=== PATIENT | female | born 1960 | race Caucasian/White ===

== ENCOUNTER 2017-10-07 14:10 | Inpatient (IN) | payer MEDICAID ==
[~2017-10-07] VITALS: Ht 172.7 cm; Wt 63.0 kg
[2017-10-07] MEDS ORDERED: normal saline 1000ML IV soln IVB ONE (14:25)
[2017-10-07] MEDS ORDERED: ondansetron/PF 4mg/2ml inj IV ONE (14:25)
[2017-10-07 14:53] LABS: CLARITY,URINE CLOUDY (Clear); GLUCOSE, URINE 100 mg/dl (Neg); KETONES,URINE 15 mg/dl (Neg); LEUKOCYTE ESTERASE ,URINE NEGATIVE (Neg); NITRITES, URINE POSITIVE (Neg); OCCULT BLOOD,URINE LARGE (Neg); PH,URINE 5.5 (4.8-8.0); PROTEIN,URINE 30 mg/dl (Neg); URINE HCG NEGATIVE (NEG); UROBILINOGEN,URINE >=8.0 E.U/dL (0.2-1.0)
[2017-10-07 14:57] LABS: UA COLLECTION TYPE CLN CATCH MIDSTREAM
[2017-10-07 14:58] LABS: COLOR,URINE AMBER (Yellow)
[2017-10-07 15:01] LABS: BACTERIA,URINE 2+ /HPF (Neg); HYALINE CASTS 0-3 /LPF (NEGATIVE); MUCUS STRANDS MODERATE /LPF (Neg); SQUAMOUS EPITHELIAL CELL,UR MANY /LPF (FEW)
[2017-10-07 15:05] LABS: BASOPHILS % (AUTO) 0 % (0-1); EOSINOPHILS # (AUTO) 0.1 X10'3 (0-0.9); EOSINOPHILS % (AUTO) 0.7 % (0-6); HEMATOCRIT 44.9 % (35.0-45.0); HEMOGLOBIN 15.6 g/dl (12.0-16.0); LYMPHOCYTES # (AUTO) 0.7 X10'3 (1.1-4.8); LYMPHOCYTES % (AUTO) 8.7 % (21-51); MEAN CORPUSCULAR HEMOGLOBIN 31.9 PG (27.0-31.0); MEAN CORPUSCULAR HGB CONC 34.7 % (33.0-36.5); MEAN CORPUSCULAR VOLUME 91.9 FL (78-98); MEAN PLATELET VOLUME 9.1 FL (7.4-10.4); MONOCYTES # (AUTO) 0.6 X10'3 (0-0.9); MONOCYTES % (AUTO) 7.9 % (2-12); NEUTROPHILS # (AUTO) 6.5 X10'3 (1.8-7.7); NEUTROPHILS % (AUTO) 82.7 % (42-75); PLATELET COUNT 165 X10'3 (140-440); RED BLOOD COUNT 4.89 X10'6 (4.20-5.60); RED CELL DISTRIBUTION WIDTH 12.6 % (11.5-14.5); WHITE BLOOD COUNT 7.9 X10'3 (4.5-11.0)
[2017-10-07 15:14] LABS: PROTHROMBIN TIME 10.2 SECONDS (9.0-12.0)
[2017-10-07 15:20] LABS: ALANINE AMINOTRANSFERASE 310 U/L (12-78); ALBUMIN 3.7 G/DL (3.4-5.0); ALBUMIN/GLOBULIN RATIO 0.9 (1.1-1.5); ALKALINE PHOSPHATASE 168 IU/L (46-116); ANION GAP 13 (8-16); ASPARTATE AMINO TRANSFERASE 99 U/L (10-37); BILIRUBIN,TOTAL 2.7 MG/DL (0.1-1.0); BLOOD UREA NITROGEN 13 MG/DL (7-18); CHLORIDE 96 MMOL/L (99-107); CREATININE 1.08 MG/DL (0.40-0.90); GLUCOSE 143 MG/DL (70-104); SODIUM 131 MMOL/L (135-145); TOTAL CARBON DIOXIDE 22.1 MMOL/L (24-32); eGFR 52 ML/MIN
[2017-10-07 15:23] LABS: TROPONIN I < 0.04 NG/ML (0.0-0.05)
[2017-10-07 15:25] LABS: POTASSIUM 3.9 MMOL/L (3.5-5.1)
[2017-10-07] MEDS ORDERED: morphine 4 MG/ML inj SYRINge IV PRN ×2 (17:20)
[2017-10-07] MEDS: K and/or MAG REPLACEMENT MC SCH (17:20)
[2017-10-07] MEDS ORDERED: potassium Cl 40MEQ/NS 500ml 500 ML IV PRN ×2 (17:20)
[2017-10-07] MEDS ORDERED: HYDROcodone/acetaminophen 5mg/325mg tablet PO PRN (17:20)
[2017-10-07] MEDS ORDERED: magnesium 4gm in 100ml NS 100 ML IV PRN (17:20)
[2017-10-07] MEDS ORDERED: magnesium hydroxide 30ml (MOM) UD suspension PO PRN (17:20)
[2017-10-07] MEDS ORDERED: diphenhydrAMINE 25mg capsule PO PRN (17:20)
[2017-10-07] MEDS ORDERED: HYDROcodone/acetaminophen 10/325mg tab PO PRN (17:20)
[2017-10-07] MEDS ORDERED: diphenhydrAMINE 50 mg/ml inj IV PRN (17:20)
[2017-10-07] MEDS ORDERED: potassium Cl 20 mEq SR tablet PO PRN ×2 (17:20)
[2017-10-07] MEDS ORDERED: magnesium Cl slow-release 64mg tablet PO PRN (17:20)
[2017-10-07] MEDS ORDERED: acetaminophen 325mg tablet PO PRN ×2 (17:20)
[2017-10-07] MEDS ORDERED: magnesium 1gm/100ml D5W IVPB 100 ML IV PRN (17:20)
[2017-10-07] MEDS: ondansetron/PF 4mg/2ml inj IV PRN (17:58)
[2017-10-07] MEDS ORDERED: proCHLORperazine 10 MG/2 ml inj IV ONE (18:05)
[2017-10-07] MEDS ORDERED: NO HOME MEDS (19:56)
[2017-10-07 20:00] VITALS: BP 125/73
[2017-10-07] MEDS: heparin, porcine 5000 units/ml vial SQ SCH (20:00)
[2017-10-07] MEDS ORDERED: temazepam 15mg capsule PO PRN (21:00)
[2017-10-07] MEDS: normal saline 1000ml 1,000 ML IV SCH (21:26)
[2017-10-07 23:27] VITALS: BP 112/58
[2017-10-08] VITALS (17 sets, daily range): BP systolic 101–144; BP diastolic 52–80
[2017-10-08] MEDS: normal saline 1000ml 1,000 ML IV SCH ×3 (03:20→23:20)
[2017-10-08 04:48] LABS: BASOPHILS % (AUTO) 0.2 % (0-1); EOSINOPHILS # (AUTO) 0.1 X10'3 (0-0.9); EOSINOPHILS % (AUTO) 1.6 % (0-6); HEMATOCRIT 38.6 % (35.0-45.0); HEMOGLOBIN 13.2 g/dl (12.0-16.0); MEAN CORPUSCULAR HGB CONC 34.3 % (33.0-36.5); MEAN CORPUSCULAR VOLUME 93.2 FL (78-98); MEAN PLATELET VOLUME 9.5 FL (7.4-10.4); MONOCYTES # (AUTO) 0.7 X10'3 (0-0.9); MONOCYTES % (AUTO) 13.5 % (2-12); NEUTROPHILS # (AUTO) 3.6 X10'3 (1.8-7.7); NEUTROPHILS % (AUTO) 65.7 % (42-75); PLATELET COUNT 138 X10'3 (140-440); RED BLOOD COUNT 4.14 X10'6 (4.20-5.60); RED CELL DISTRIBUTION WIDTH 12.7 % (11.5-14.5); WHITE BLOOD COUNT 5.5 X10'3 (4.5-11.0)
[2017-10-08 05:04] LABS: ALANINE AMINOTRANSFERASE 239 U/L (12-78); ALBUMIN 2.8 G/DL (3.4-5.0); ALBUMIN/GLOBULIN RATIO 0.8 (1.1-1.5); ALKALINE PHOSPHATASE 129 IU/L (46-116); ANION GAP 8 (8-16); ASPARTATE AMINO TRANSFERASE 81 U/L (10-37); BILIRUBIN,TOTAL 1.8 MG/DL (0.1-1.0); BLOOD UREA NITROGEN 8 MG/DL (7-18); CALCIUM 8.7 MG/DL (8.5-10.1); CHLORIDE 103 MMOL/L (99-107); GLUCOSE 109 MG/DL (70-104); MAGNESIUM 2.2 MG/DL (1.5-2.4); PHOSPHORUS 2.6 MG/DL (2.3-4.5); POTASSIUM 3.8 MMOL/L (3.5-5.1); SODIUM 134 MMOL/L (135-145); TOTAL CARBON DIOXIDE 23.3 MMOL/L (24-32); TOTAL PROTEIN 6.4 G/DL (6.4-8.2); eGFR 74 ML/MIN
[2017-10-08] MEDS: K and/or MAG REPLACEMENT MC SCH (08:00)
[2017-10-08] MEDS: heparin, porcine 5000 units/ml vial SQ SCH ×2 (08:00→19:28)
[2017-10-08 09:48] LABS: GLUCOSE, URINE NEGATIVE (Neg); KETONES,URINE 15 mg/dl (Neg); LEUKOCYTE ESTERASE ,URINE NEGATIVE (Neg); NITRITES, URINE NEGATIVE (Neg); OCCULT BLOOD,URINE LARGE (Neg); PROTEIN,URINE TRACE mg/dl (Neg); UA COLLECTION TYPE NON-SPECIFIED; UROBILINOGEN,URINE >=8.0 E.U/dL (0.2-1.0)
[2017-10-08 09:49] LABS: CLARITY,URINE SLIGHTLY CLOUDY (Clear); COLOR,URINE AMBER (Yellow)
[2017-10-08 09:55] LABS: SQUAMOUS EPITHELIAL CELL,UR FEW /LPF (FEW)
[2017-10-08 09:56] LABS: BACTERIA,URINE FEW /HPF (Neg); WBC,URINE 0-4 /HPF (0-4)
[2017-10-08] MEDS ORDERED: meperidine/PF 100mg/ml syringe ONE (12:40)
[2017-10-08] MEDS ORDERED: MIDAZolam 5mg/5ml vial ONE (12:41)
[2017-10-08] MEDS ORDERED: fentaNYL/PF 50MCG/1 ML 2ML syringe ONE (12:41)
[2017-10-08] MEDS ORDERED: levoFLOXACIN-Levaquin 500mg/D5 100 ML IV ONE (12:42)
[2017-10-08] MEDS ORDERED: diphenhydrAMINE 50 mg/ml inj ONE ×2 (12:42→13:18)
[2017-10-08] MEDS ORDERED: LIDOcaine Viscous 15ml cup ONE (12:42)
[2017-10-08] MEDS ORDERED: glucagon, human recombinant 1mg kit ONE (12:43)
[2017-10-08] MEDS ORDERED: iohexol 300 MG/1 ML 50ml polymer ONE (12:43)
[2017-10-08] MEDS: ondansetron/PF 4mg/2ml inj IV PRN (19:19)
[2017-10-09] VITALS (21 sets, daily range): BP systolic 96–143; BP diastolic 47–76
[2017-10-09 05:15] LABS: BASOPHILS % (AUTO) 0.1 % (0-1); EOSINOPHILS # (AUTO) 0.1 X10'3 (0-0.9); EOSINOPHILS % (AUTO) 1.8 % (0-6); HEMATOCRIT 38.2 % (35.0-45.0); HEMOGLOBIN 13.2 g/dl (12.0-16.0); LYMPHOCYTES # (AUTO) 1.1 X10'3 (1.1-4.8); LYMPHOCYTES % (AUTO) 15.1 % (21-51); MEAN CORPUSCULAR HEMOGLOBIN 32.4 PG (27.0-31.0); MEAN CORPUSCULAR HGB CONC 34.7 % (33.0-36.5); MEAN CORPUSCULAR VOLUME 93.3 FL (78-98); MONOCYTES # (AUTO) 0.9 X10'3 (0-0.9); MONOCYTES % (AUTO) 12.4 % (2-12); NEUTROPHILS % (AUTO) 70.6 % (42-75); PLATELET COUNT 142 X10'3 (140-440); RED BLOOD COUNT 4.09 X10'6 (4.20-5.60); RED CELL DISTRIBUTION WIDTH 12.2 % (11.5-14.5); WHITE BLOOD COUNT 7.1 X10'3 (4.5-11.0)
[2017-10-09 05:45] LABS: ALANINE AMINOTRANSFERASE 184 U/L (12-78); ALBUMIN 2.7 G/DL (3.4-5.0); ALBUMIN/GLOBULIN RATIO 0.8 (1.1-1.5); ALKALINE PHOSPHATASE 132 IU/L (46-116); ANION GAP 12 (8-16); ASPARTATE AMINO TRANSFERASE 57 U/L (10-37); BILIRUBIN,TOTAL 0.9 MG/DL (0.1-1.0); BLOOD UREA NITROGEN 8 MG/DL (7-18); BUN/CREATININE RATIO 11.9 (6.6-38.0); CALCIUM 8.5 MG/DL (8.5-10.1); CHLORIDE 103 MMOL/L (99-107); CREATININE 0.67 MG/DL (0.40-0.90); GLUCOSE 85 MG/DL (70-104); MAGNESIUM 1.8 MG/DL (1.5-2.4); PHOSPHORUS 2.1 MG/DL (2.3-4.5); POTASSIUM 3.9 MMOL/L (3.5-5.1); SODIUM 136 MMOL/L (135-145); TOTAL PROTEIN 6.2 G/DL (6.4-8.2); eGFR > 90 ML/MIN
[2017-10-09] MEDS ORDERED: LIDOcaine 1% 30ml preserv. free vial ONE (06:38)
[2017-10-09] MEDS ORDERED: BUPIVAcaine/PF 2.5mg/ml (0.25%) 10ml vial ONE (06:39)
[2017-10-09] MEDS ORDERED: ringers solution, lacted 1,000 ML IV SCH (07:37)
[2017-10-09] MEDS ORDERED: labetalol 20mg/4ml (5mg/ml) syringe IV PRN (07:40)
[2017-10-09] MEDS ORDERED: HYDROmorphone 1 mg/ml syringe IV PRN ×2 (07:40)
[2017-10-09] MEDS ORDERED: hydrALAZINE 20mg/ml inj. IV PRN (07:40)
[2017-10-09] MEDS ORDERED: morphine 4 MG/ML inj SYRINge IV PRN ×2 (07:40)
[2017-10-09] MEDS ORDERED: ondansetron/PF 4mg/2ml inj IV PRN (07:40)
[2017-10-09] MEDS: heparin, porcine 5000 units/ml vial SQ SCH ×2 (08:00→19:23)
[2017-10-09] MEDS: K and/or MAG REPLACEMENT MC SCH (08:00)
[2017-10-09] MEDS ORDERED: midazolam 2 mg/2 ml injection ONE (08:24)
[2017-10-09] MEDS ORDERED: morphine 10mg/ml inj. ONE ×2 (08:24)
[2017-10-09] MEDS ORDERED: propofol inj 20 ML IV ONE (08:26)
[2017-10-09] MEDS ORDERED: LIDOcaine 1%/PF 5ML 10 MG/ML VIAL ONE (08:26)
[2017-10-09] MEDS ORDERED: rocuronium 10mg/ml inj IV ONE (08:26)
[2017-10-09] MEDS ORDERED: neostigmine methylsulfate 1 MG/ML 10ml vial ONE (08:26)
[2017-10-09] MEDS ORDERED: dexamethasone sod phosphate 4mg/ml inj. ONE (08:26)
[2017-10-09] MEDS ORDERED: glycopyrrolate 0.2mg/ml inj ONE (08:26)
[2017-10-09] MEDS ORDERED: ondansetron/PF 4mg/2ml inj ONE (08:26)
[2017-10-09] MEDS ORDERED: sevoflurane 250ml liquid IH ONE (08:29)
[2017-10-09 08:31] LABS: HBSAG SCREEN Negative (Negative); HEP A AB, IGM Negative (Negative); HEP B CORE AB, IGM Negative (Negative); HEPATITIS C ANTIBODY <0.1 s/co ratio (0.0-0.9)
[2017-10-09] MEDS ORDERED: ceFAZolin 1000mg inj ONE ×2 (08:46)
[2017-10-09] MEDS: normal saline 1000ml 1,000 ML IV SCH ×2 (09:20→15:50)
[2017-10-09] MEDS ORDERED: HYDROcodone/acetaminophen 5mg/325mg tablet PO PRN (09:40)
[2017-10-09] MEDS: HYDROcodone/acetaminophen 10/325mg tab PO PRN ×3 (11:34→20:30)
[2017-10-09] MEDS: mag hydrox/Alum hydrox/simeth 30ml oral suspension PO PRN ×2 (17:50→22:11)
[2017-10-10] VITALS: BP 117/56
[2017-10-10] MEDS: ondansetron/PF 4mg/2ml inj IV PRN (00:38)
[2017-10-10] MEDS: HYDROcodone/acetaminophen 10/325mg tab PO PRN ×5 (00:45→20:28)
[2017-10-10 04:00] VITALS: BP 126/72
[2017-10-10] MEDS: normal saline 1000ml 1,000 ML IV SCH ×3 (04:09→22:09)
[2017-10-10 04:43] LABS: BASOPHILS % (AUTO) 0.1 % (0-1); EOSINOPHILS % (AUTO) 0.1 % (0-6); HEMATOCRIT 35.4 % (35.0-45.0); HEMOGLOBIN 12.4 g/dl (12.0-16.0); LYMPHOCYTES % (AUTO) 10.2 % (21-51); MEAN CORPUSCULAR HEMOGLOBIN 32.8 PG (27.0-31.0); MEAN CORPUSCULAR HGB CONC 35.1 % (33.0-36.5); MEAN CORPUSCULAR VOLUME 93.5 FL (78-98); MEAN PLATELET VOLUME 9.6 FL (7.4-10.4); MONOCYTES # (AUTO) 0.6 X10'3 (0-0.9); MONOCYTES % (AUTO) 6.6 % (2-12); PLATELET COUNT 170 X10'3 (140-440); RED BLOOD COUNT 3.79 X10'6 (4.20-5.60); RED CELL DISTRIBUTION WIDTH 11.4 % (11.5-14.5); WHITE BLOOD COUNT 9.6 X10'3 (4.5-11.0)
[2017-10-10] MEDS ORDERED: oxyCODONE IR 5mg (immed. release) tablet PO PRN (04:45)
[2017-10-10] MEDS ORDERED: proMETHazine 12.5mg rectal suppository RC PRN (04:45)
[2017-10-10 04:52] LABS: ALANINE AMINOTRANSFERASE 112 U/L (12-78); ALBUMIN 2.4 G/DL (3.4-5.0); ALBUMIN/GLOBULIN RATIO 0.7 (1.1-1.5); ALKALINE PHOSPHATASE 114 IU/L (46-116); ANION GAP 4 (8-16); ASPARTATE AMINO TRANSFERASE 34 U/L (10-37); BLOOD UREA NITROGEN 12 MG/DL (7-18); BUN/CREATININE RATIO 18.5 (6.6-38.0); CALCIUM 8.5 MG/DL (8.5-10.1); CHLORIDE 102 MMOL/L (99-107); CREATININE 0.65 MG/DL (0.40-0.90); GLUCOSE 135 MG/DL (70-104); MAGNESIUM 1.9 MG/DL (1.5-2.4); POTASSIUM 3.5 MMOL/L (3.5-5.1); SODIUM 134 MMOL/L (135-145); TOTAL PROTEIN 5.7 G/DL (6.4-8.2); eGFR > 90 ML/MIN
[2017-10-10] MEDS ORDERED: proMETHazine 25mg rectal suppository RC PRN (04:54)
[2017-10-10] MEDS: heparin, porcine 5000 units/ml vial SQ SCH ×2 (07:14→20:29)
[2017-10-10] MEDS: K and/or MAG REPLACEMENT MC SCH (07:17)
[2017-10-10 07:30] VITALS: BP 121/56
[2017-10-10 10:50] VITALS: BP 113/65
[2017-10-10 19:00] VITALS: BP 116/63
[2017-10-11] VITALS: BP 103/59
[2017-10-11] MEDS: HYDROcodone/acetaminophen 10/325mg tab PO PRN ×4 (00:16→17:52)
[2017-10-11 05:35] LABS: BASOPHILS # (AUTO) 0.1 X10'3 (0-0.2); BASOPHILS % (AUTO) 0.6 % (0-1); EOSINOPHILS # (AUTO) 0.2 X10'3 (0-0.9); EOSINOPHILS % (AUTO) 1.7 % (0-6); HEMATOCRIT 34.4 % (35.0-45.0); LYMPHOCYTES # (AUTO) 1.5 X10'3 (1.1-4.8); LYMPHOCYTES % (AUTO) 13.2 % (21-51); MEAN CORPUSCULAR HEMOGLOBIN 32.3 PG (27.0-31.0); MEAN CORPUSCULAR HGB CONC 34.8 % (33.0-36.5); MEAN PLATELET VOLUME 9.3 FL (7.4-10.4); MONOCYTES # (AUTO) 0.7 X10'3 (0-0.9); MONOCYTES % (AUTO) 6.7 % (2-12); NEUTROPHILS # (AUTO) 8.6 X10'3 (1.8-7.7); NEUTROPHILS % (AUTO) 77.8 % (42-75); PLATELET COUNT 187 X10'3 (140-440); RED CELL DISTRIBUTION WIDTH 12.3 % (11.5-14.5); WHITE BLOOD COUNT 11.1 X10'3 (4.5-11.0)
[2017-10-11 06:28] LABS: ALANINE AMINOTRANSFERASE 65 U/L (12-78); ALBUMIN/GLOBULIN RATIO 0.6 (1.1-1.5); ALKALINE PHOSPHATASE 100 IU/L (46-116); ANION GAP 12 (8-16); ASPARTATE AMINO TRANSFERASE 20 U/L (10-37); BILIRUBIN,TOTAL 0.7 MG/DL (0.1-1.0); BLOOD UREA NITROGEN 7 MG/DL (7-18); BUN/CREATININE RATIO 11.1 (6.6-38.0); CALCIUM 7.8 MG/DL (8.5-10.1); CHLORIDE 103 MMOL/L (99-107); CREATININE 0.63 MG/DL (0.40-0.90); GLUCOSE 87 MG/DL (70-104); MAGNESIUM 1.6 MG/DL (1.5-2.4); PHOSPHORUS 1.6 MG/DL (2.3-4.5); POTASSIUM 3.1 MMOL/L (3.5-5.1); SODIUM 137 MMOL/L (135-145); TOTAL CARBON DIOXIDE 22.2 MMOL/L (24-32); TOTAL PROTEIN 5.3 G/DL (6.4-8.2); eGFR > 90 ML/MIN
[2017-10-11] MEDS ORDERED: potassium Cl 40MEQ/NS 500ml 500 ML IV PRN ×2 (07:20)
[2017-10-11] MEDS ORDERED: magnesium Cl slow-release 64mg tablet PO PRN (07:20)
[2017-10-11] MEDS ORDERED: magnesium 4gm in 100ml NS 100 ML IV PRN (07:20)
[2017-10-11] MEDS ORDERED: magnesium 1gm/100ml D5W IVPB 100 ML IV PRN (07:20)
[2017-10-11] MEDS ORDERED: potassium Cl 20 mEq SR tablet PO PRN (07:20)
[2017-10-11 07:45] VITALS: BP 109/54
[2017-10-11] MEDS: K and/or MAG REPLACEMENT MC SCH (08:00)
[2017-10-11] MEDS ORDERED: sodium phosphate inj. 30 MMOL in dextrose 5%-water 250 ML IV ONE (08:00)
[2017-10-11] MEDS: potassium Cl 20 mEq SR tablet PO PRN ×3 (08:19→16:40)
[2017-10-11] MEDS: heparin, porcine 5000 units/ml vial SQ SCH ×2 (08:20→20:44)
[2017-10-11] MEDS: normal saline 1000ml 1,000 ML IV SCH (08:28)
[2017-10-11] MEDS ORDERED: metroNIDAZOLE-Flagyl 500mg/NS 100 ML IV SCH (09:50)
[2017-10-11] MEDS ORDERED: levoFLOXACIN-Levaquin 750MG/D5 150 ML IV SCH (09:50)
[2017-10-11] MEDS ORDERED: ondansetron 4mg rapidly disintigrating tab PO PRN (10:05)
[2017-10-11] MEDS ORDERED: piperacillin/tazo 3.375gm/50ml 50 ML IV SCH ×2 (11:52→12:00)
[2017-10-11 12:00] VITALS: BP 122/61
[2017-10-11] MEDS: piperacillin/tazo 3.375gm/50ml 50 ML IV SCH ×2 (12:41→20:41)
[2017-10-11 19:00] VITALS: BP 134/83
[2017-10-11] MEDS: ipratropium/albuterol 3ml nebule NEB SCH (19:49)
[2017-10-12] VITALS: BP 118/70
[2017-10-12] MEDS: ipratropium/albuterol 3ml nebule NEB SCH ×4 (00:03→11:25)
[2017-10-12] MEDS: piperacillin/tazo 3.375gm/50ml 50 ML IV SCH ×2 (02:15→07:16)
[2017-10-12 05:15] LABS: BASOPHILS % (AUTO) 0.5 % (0-1); EOSINOPHILS # (AUTO) 0.1 X10'3 (0-0.9); EOSINOPHILS % (AUTO) 1.5 % (0-6); HEMATOCRIT 34.8 % (35.0-45.0); HEMOGLOBIN 12.1 g/dl (12.0-16.0); LYMPHOCYTES # (AUTO) 1.3 X10'3 (1.1-4.8); LYMPHOCYTES % (AUTO) 15.3 % (21-51); MEAN CORPUSCULAR HEMOGLOBIN 32.5 PG (27.0-31.0); MEAN CORPUSCULAR HGB CONC 34.9 % (33.0-36.5); MEAN CORPUSCULAR VOLUME 93.3 FL (78-98); MEAN PLATELET VOLUME 9.3 FL (7.4-10.4); MONOCYTES # (AUTO) 0.6 X10'3 (0-0.9); MONOCYTES % (AUTO) 7.4 % (2-12); NEUTROPHILS # (AUTO) 6.8 X10'3 (1.8-7.7); NEUTROPHILS % (AUTO) 75.3 % (42-75); PLATELET COUNT 237 X10'3 (140-440); RED BLOOD COUNT 3.73 X10'6 (4.20-5.60); RED CELL DISTRIBUTION WIDTH 11.6 % (11.5-14.5); WHITE BLOOD COUNT 8.8 X10'3 (4.5-11.0)
[2017-10-12] MEDS: HYDROcodone/acetaminophen 10/325mg tab PO PRN (06:46)
[2017-10-12 06:54] LABS: ALANINE AMINOTRANSFERASE 60 U/L (12-78); ALBUMIN/GLOBULIN RATIO 0.6 (1.1-1.5); ALKALINE PHOSPHATASE 118 IU/L (46-116); ANION GAP 8 (8-16); ASPARTATE AMINO TRANSFERASE 31 U/L (10-37); BILIRUBIN,TOTAL 0.6 MG/DL (0.1-1.0); BLOOD UREA NITROGEN 3 MG/DL (7-18); BUN/CREATININE RATIO 3.9 (6.6-38.0); CALCIUM 8.3 MG/DL (8.5-10.1); CHLORIDE 104 MMOL/L (99-107); CREATININE 0.76 MG/DL (0.40-0.90); GLUCOSE 100 MG/DL (70-104); PHOSPHORUS 2.4 MG/DL (2.3-4.5); POTASSIUM 3.5 MMOL/L (3.5-5.1); SODIUM 139 MMOL/L (135-145); TOTAL CARBON DIOXIDE 27.1 MMOL/L (24-32); TOTAL PROTEIN 5.5 G/DL (6.4-8.2); eGFR 78 ML/MIN
[2017-10-12 07:00] VITALS: BP 121/78
[2017-10-12] MEDS: K and/or MAG REPLACEMENT MC SCH (07:06)
[2017-10-12] MEDS: heparin, porcine 5000 units/ml vial SQ SCH (07:13)
[2017-10-12] MEDS ORDERED: lactobacillus rhamnosus 10,000 MMU CELLS/CAPSULE PO SCH (08:00)
[2017-10-12] MEDS ORDERED: METR500T4 PO (09:57)
[2017-10-12] MEDS ORDERED: LACT1CAP26 PO (09:57)
[2017-10-12] MEDS ORDERED: LEVO500T89 PO (09:57)
[2017-10-12 12:11] VITALS: BP 109/56
== END 2017-10-12 12:15 | disposition home or self-care (01) | DRG 263 ==
LOC: ER 14:10 → ED HOLD 17:20 → SUR 3N 19:13
PROVIDERS: ADMIT Family Medicine; ATTEND Family Medicine
PROC: 0F798DZ Dilation of Common Bile Duct with Intraluminal Device, Via Natural or Artificial Opening Endoscopic (ICD-10-PCS; 2017-10-08)
PROC: 0FC98ZZ Extirpation of Matter from Common Bile Duct, Via Natural or Artificial Opening Endoscopic (ICD-10-PCS; 2017-10-08)
PROC: 0FT44ZZ Resection of Gallbladder, Percutaneous Endoscopic Approach (ICD-10-PCS; principal; 2017-10-09 08:34)
DX: K80.67 Calculus of gallbladder and bile duct with acute and chronic cholecystitis with obstruction (principal); N17.9 Acute kidney failure, unspecified; E87.1 Hypo-osmolality and hyponatremia; K56.7 Ileus, unspecified; F12.10 Cannabis abuse, uncomplicated; G40.909 Epilepsy, unspecified, not intractable, without status epilepticus; I10 Essential (primary) hypertension; F17.210 Nicotine dependence, cigarettes, uncomplicated; N39.0 Urinary tract infection, site not specified; N95.1 Menopausal and female climacteric states; E86.1 Hypovolemia; R09.02 Hypoxemia; Z80.0 Family history of malignant neoplasm of digestive organs; Z80.3 Family history of malignant neoplasm of breast; Z80.8 Family history of malignant neoplasm of other organs or systems; Z83.3 Family history of diabetes mellitus; Z90.710 Acquired absence of both cervix and uterus; Z88.8 Allergy status to other drugs, medicaments and biological substances; Z71.6 Tobacco abuse counseling
CPT/HCPCS: 36415; 43274; 71045; 74018; 76700; 80053; 81001; 81025; 83735; 84100; 84132; 84484; 85025; 85610; 86705; 86706; 86709; 86803; 87040; 87070; 87088; 87340; 93005; 94640; 94760; 96361; 96374; 99285; A4620; A6258; A7000; G0500; J0690; J0780; J1100; J1170; J1200; J1610; J1644; J1956; J2001; J2175; J2250; J2270; J2405; J2543; J2704; J2710; J3010; J3490; J7030; J7060; J7120; Q9967

== ENCOUNTER 2017-11-03 14:31 | Day surgery (SDC) | payer MEDICAID ==
[~2017-11-03] VITALS: Ht 172.7 cm; Wt 144.0 kg
[2017-11-03] VITALS (7 sets, daily range): BP systolic 112–125; BP diastolic 61–78
[~2017-11-03 14:31] MED LIST: LACT1CAP26 PO; LEVO500T89 PO
[2017-11-03] MEDS ORDERED: IBUP-1985 PO (15:47)
[2017-11-03] MEDS ORDERED: RANI150T44 PO (15:48)
[2017-11-03] MEDS ORDERED: fentaNYL/PF 50MCG/1 ML 2ML syringe ONE (16:28)
[2017-11-03] MEDS ORDERED: MIDAZolam 5mg/5ml vial ONE (16:29)
[2017-11-03] MEDS ORDERED: LIDOcaine Viscous 15ml cup ONE (16:29)
[2017-11-03] MEDS ORDERED: glucagon, human recombinant 1mg kit ONE (16:30)
[2017-11-03] MEDS ORDERED: iohexol 300 MG/1 ML 50ml polymer ONE (16:32)
== END 2017-11-03 18:04 | disposition home or self-care (01) ==
LOC: GI LAB 14:31
PROVIDERS: ATTEND Internal Medicine Gastroenterology
DX: Z46.59 Encounter for fitting and adjustment of other gastrointestinal appliance and device (principal); K80.50 Calculus of bile duct without cholangitis or cholecystitis without obstruction; K83.8 Other specified diseases of biliary tract; K21.9 Gastro-esophageal reflux disease without esophagitis; Z90.49 Acquired absence of other specified parts of digestive tract; Z79.1 Long term (current) use of non-steroidal anti-inflammatories (NSAID); Z86.69 Personal history of other diseases of the nervous system and sense organs; Z87.891 Personal history of nicotine dependence; Z72.89 Other problems related to lifestyle; Z98.890 Other specified postprocedural states; Z79.899 Other long term (current) drug therapy; Z88.8 Allergy status to other drugs, medicaments and biological substances
CPT/HCPCS: 43264; 43275; 74328; 99152; J1610; J2250; J3010; J7030; Q9967; A4620; G0500

== ENCOUNTER 2022-01-25 10:00 | Day surgery (SDC) | payer MEDICAID ==
[~2022-01-25] VITALS: Ht 172.7 cm; Wt 65.9 kg
[~2022-01-25 10:00] MED LIST changes: +IBUP-1985 PO; -LACT1CAP26 PO; -LEVO500T89 PO; +RANI-648 PO
[2022-01-25 10:15] VITALS: BP 147/82
[2022-01-25] MEDS ORDERED: FENTANYL CITRATE/PF 50 MCG/1 ML VIAL ONE (10:24)
[2022-01-25] MEDS ORDERED: LIDOcaine Viscous 15ml cup ONE (10:24)
[2022-01-25] MEDS ORDERED: MIDAZolam 1 MG/ML 5ML VIAL ONE (10:24)
[2022-01-25] MEDS ORDERED: LEVO25TA2 PO (10:27)
[2022-01-25] MEDS ORDERED: ATOR20TA PO (10:29)
[2022-01-25 11:36] VITALS: BP 126/78
[2022-01-25 11:46] VITALS: BP 135/79
[2022-01-25 11:56] VITALS: BP 107/70
[2022-01-25 12:06] VITALS: BP 132/74
== END 2022-01-25 12:15 | disposition home or self-care (01) ==
LOC: GI LAB 10:00
PROVIDERS: ATTEND Internal Medicine Gastroenterology
DX: K21.00 Gastro-esophageal reflux disease with esophagitis, without bleeding (principal); K29.50 Unspecified chronic gastritis without bleeding; K44.9 Diaphragmatic hernia without obstruction or gangrene; K31.89 Other diseases of stomach and duodenum; K22.89 Other specified disease of esophagus
CPT/HCPCS: 43239; J2250; J3010; J7030; Z7512; 99152; 99153; A4620

== ENCOUNTER 2022-04-12 07:24 | Day surgery (SDC) | payer MEDICAID ==
[~2022-04-12] VITALS: Ht 172.7 cm; Wt 68.2 kg
[~2022-04-12 07:24] MED LIST changes: +ATOR20TA PO; +LEVO25TA2 PO; -RANI-648 PO
[2022-04-12 07:34] VITALS: BP 112/69
[2022-04-12] MEDS ORDERED: OMEP20TA43 PO (07:51)
[2022-04-12] MEDS ORDERED: DOXY25TA58 PO (07:51)
[2022-04-12] MEDS ORDERED: fentaNYL/PF 50MCG/1 ML 2ML syringe ONE (08:16)
[2022-04-12] MEDS ORDERED: MIDAZolam 1 MG/ML 5ML VIAL ONE (08:16)
[2022-04-12] MEDS ORDERED: LIDOcaine Viscous 15ml cup ONE (08:17)
[2022-04-12 09:05] VITALS: BP 121/58
[2022-04-12 09:15] VITALS: BP 125/78
[2022-04-12 09:25] VITALS: BP 130/67
[2022-04-12 09:35] VITALS: BP 138/81
== END 2022-04-12 09:35 | disposition home or self-care (01) ==
LOC: GI LAB 07:24
PROVIDERS: ATTEND Internal Medicine Gastroenterology
DX: K20.80 Other esophagitis without bleeding (principal); K22.70 Barrett's esophagus without dysplasia; K44.9 Diaphragmatic hernia without obstruction or gangrene; Z87.891 Personal history of nicotine dependence; F12.90 Cannabis use, unspecified, uncomplicated; Z72.89 Other problems related to lifestyle; Z98.890 Other specified postprocedural states; Z88.8 Allergy status to other drugs, medicaments and biological substances
CPT/HCPCS: 43239; 99152; J2250; J3010; J7030; Z7512; A4620